=== PATIENT | female | born 1955 | race Two or more races ===

== ENCOUNTER 2017-06-25 08:00 | Day surgery (SDC) | payer OTHER, SELFPAY ==
[~2017-06-25] VITALS: Ht 157.5 cm; Wt 61.2 kg
[2017-06-25] VITALS (15 sets, daily range): BP systolic 114–177; BP diastolic 50–90
--- NOTE | 2017-06-25 07:01 | Anethesia Preoperative Eval ---
Anesthesia Pre-op PMH/ROS General Date of Evaluation: Jun 25, 2017 Time of Evaluation: 07:01 Anesthesiologist: noble Mallampati Score Class I : Soft palate, uvula, fauces, pillars visible Class II: Soft palate, uvula, fauces visible Class III: Soft palate, base of uvula visible Class IV: Only hard plate visible Surgeon: emma Diagnosis: colon screening Surgical Procedure: colonoscopy Allergies: Coded Allergies: No Known Allergies (Unverified , 06/25/17) Medications: see eMAR Anesthesia Pre-op A/P Risk Assessment & Plan Plan: NICOLE Elizalde Jun 25, 2017 07:01
[2017-06-25] MEDS ORDERED: NKM (08:54)
[2017-06-25] MEDS ORDERED: Midazolam 2mg/2ml Inj IVP ONE (09:00)
[2017-06-25] MEDS ORDERED: Atropine Sulfate 0.4mg/ml inj ONE (09:00)
[2017-06-25] MEDS ORDERED: fentaNYL 100 mcg/2 mL IV ONE ×2 (09:00→09:20)
--- NOTE | 2017-06-25 09:09 | Pre-Procedure Note/Attestation ---
Pre-Procedure Note/Attestation Complete Prior to Procedure Planned Procedure: not applicable Procedure Narrative: colonoscopy Indications for Procedure Pre-Operative Diagnosis: screening colon Attestation I attest that I discussed the nature of the procedure; its benefits; risks and complications; and alternatives (and the risks and benefits of such alternatives ), prior to the procedure, with the patient (or the patient's legal office services representative). I attest that, if there was a reasonable possibility of needing a blood transfusion, the patient (or the patient's legal office services representative) was given the [facility] standardized written summary, pursuant to the Porfirio Cindi Blood Safety Act ([place] Health and Safety Code # 1645, as amended). I attest that I re-evaluated the patient just prior to the surgery and that there has been no change in the patient's H&P, except as documented below: FAHAD BANSAL Jun 25, 2017 09:09
--- NOTE | 2017-06-25 09:10 | Short Stay Surgery H&P ---
History of Present Illness History of Present Illness Chief Complaint screening colon HPI Mary Olsen is a 61 year old female who was admitted on for Colon Screening Patient History Allergies: Coded Allergies: No Known Allergies (Unverified , 06/25/17) PAST MEDICAL HISTORY: (1) HTN (hypertension) Past Surgeries: Social History: Medication History Scheduled No Known Medications* (NKM - No Known Medications*), 0 ., (Reported) Review of Systems Cardiovascular: Reports: no symptoms Respiratory: Reports: no symptoms Skeletal: Reports: no symptoms Gastrointestinal: Reports: no symptoms Genitourinary: Reports: no symptoms Neurologic: Reports: no symptoms Endocrine: Reports: no symptoms Hematologic: Reports: no symptoms Physical Exam Skin: normal HENT: normal Heart: normal Lungs: normal Abdomen: normal Extremities: normal Plan Plan of Care colonoscopy Final Diagnosis: Attestation Are the patient's medical conditions optimized for surgery? Attestation Response: yes FAHAD BANSAL Jun 25, 2017 09:10
--- NOTE | 2017-06-25 09:11 | Moderate Sedation - Procedural ---
Moderate Sedation HPI Home Medication Reported Medications No Known Medications* (NKM - No Known Medications*) ., 0 ., 0 Refills 06/25/17 Patient History Allergies: Coded Allergies: No Known Allergies (Unverified , 06/25/17) PAST MEDICAL HISTORY: Past Surgeries: Social History: Pre-Procedural Mod Sedation Date: Jun 25, 2017 Pre-Assessment Time: 09:10 Pre-Sedation Assessment: Elective Airway Assessment (Malampati): II Heart: normal Lungs: normal Abdomen: normal Extremities: normal Pre-op Diagnosis: screening Evaluation Hx of untoward rxns to mod sed: No Procedures/Plans: Colonoscopy ASA Score: II Informed Consent The nature of the procedure/sedation; its benefits; risks and complications; and alternatives (and the risks and benefits of such alternatives) were discussed with the patient (or their legal union contract representative), prior to the procedure. All questions were answered to the patient's (or their legal union contract representative's) satisfaction and the patient (or their legal union contract representative) gave informed consent to the procedure. I attest that I re-evaluated the patient just prior to the surgery and that there has been no change in the patient's H&P, except as documented below: Post Procedure Assessment Post Procedure TIme: 09:42 Communication: No Apparent Limitation Mental Status: Awake Respiration: Unlabored Skin Condition: WNL Adomen: WNL Nausea: NO Vomiting: NO FAHAD BANSAL Jun 25, 2017 09:11
[2017-06-25] MEDS ORDERED: Midazolam 2mg/2ml Inj IV ONE (09:20)
--- NOTE | 2017-06-25 09:40 | Endoscopy Procedure Note ---
Endoscopy Procedure Note Indication for Procedure: screening Procedures Performed: colonoscopy Operative Findings/Diagnosis: diverticulosis Specimen: none Pt Tolerated Procedure Well: Yes Estimated Blood Loss: none Anesthesiologist: none Anesthesia: moderate sedation Medication Given: midazolam, flumazenil Implant(s) used?: No 50 yrs or older w/o bx or poly: Yes 10yrs. F/U not recommended: Yes If not recommended, why?: Above average risk 10 yrs. F/U needed: Yes 18 years or older w/prev. colo: No FAHAD BANSAL Jun 25, 2017 09:40
--- NOTE | 2017-06-25 16:02 | Procedure Note ---
DATE OF PROCEDURE: 06/25/2017 SURGEON: Pancho Benitez M.D. PROCEDURE: Colonoscopy. ANESTHESIA: 4 mg of Versed, 50 mcg of fentanyl IV, and 0.4 mg of atropine. INDICATION: Screening. The procedure, risks, benefits, and possible consequences, including hemorrhage, aspiration, perforation and infection, and alternative treatments, were explained to the patient/legal guardian by Dr. Pancho Benitez and the patient/legal guardian understood and accepted these risks. PROCEDURE IN DETAIL: After informed consent was obtained and the patient was adequately sedated, first rectal exam was performed, which was normal. Then, the scope was advanced from rectum into the cecum, documented by appendiceal orifice, ileocecal valve, and right upper quadrant palpation. Quality of prep was very good. Generalized diverticulosis, more prominent in the left compared to right. Internal hemorrhoids seen on the retroflexion in the rectum. Otherwise, the rest of the exam grossly within normal limit. SUMMARY FINDINGS: 1. Diverticulosis more prominent on the left compared to right. 2. Internal hemorrhoids. RECOMMENDATIONS: Repeat colonoscopy in 10 years. Pancho Benitez M.D. DR: DANYEL JOB#: [id number] CC:
--- NOTE | 2017-06-25 16:02 | Procedure Note ---
DATE OF PROCEDURE: 06/25/2017 SURGEON: Pancho Benitez M.D. PROCEDURE: Colonoscopy. ANESTHESIA: A 4 mg of Versed, 50 mcg of fentanyl, and 0.4 mg of atropine. INDICATION: Screening colonoscopy. REASON FOR PROCEDURE: The procedure, risks, benefits, and possible consequences, including hemorrhage, aspiration, perforation and infection, and alternative treatments, were explained to the patient/legal guardian by Dr. Pancho Benitez and the patient/legal guardian understood and accepted these risks. PROCEDURE: After informed consent was obtained and the patient was adequately sedated, first rectal exam was performed, which was normal. Then, the scope was advanced from the rectum into the cecum documented by appendiceal orifice, ileocecal valve, and upper quadrant palpation. Quality of prep was very good. The patient had diverticulosis both in the right and left but most probably in the left. Retroflexion of rectum showed evidence of internal hemorrhoids. SUMMARY FINDINGS: 1. Diverticulosis. 2. Internal hemorrhoids. RECOMMENDATIONS: Repeat colonoscopy in 10 years. Pancho Benitez M.D. DR: DANYEL JOB#: [id number] CC:
[2017-06-26] MEDS ORDERED: Atropine Sulfate 0.4mg/ml inj IVP ONE (09:00)
== END 2017-06-25 11:30 | disposition home or self-care (01) ==
LOC: GAS 08:00
DX: Z12.11 Encounter for screening for malignant neoplasm of colon (principal); K57.30 Diverticulosis of large intestine without perforation or abscess without bleeding; K64.8 Other hemorrhoids; I10 Essential (primary) hypertension
CPT/HCPCS: 45378; J0461; J2250; J3010